=== PATIENT | male | born 1980 | race Caucasian/White ===

== ENCOUNTER 2023-05-18 04:50 | Emergency (ER) | payer MEDICAID, OTHER ==
[~2023-05-18] VITALS: Ht 185.4 cm; Wt 113.4 kg
--- NOTE | 2023-05-18 04:59 | NUR ---
PT PUT IN BED 9
[2023-05-18 05:01] VITALS: BP 139/86; PULSE 108; RESP 12; TEMP 97.8; O2SAT 97
[2023-05-18 05:05] VITALS: BP 139/86; PULSE 108; RESP 12; TEMP 97.8
--- NOTE | 2023-05-18 05:05 | NUR ---
Pt BIB himself with c/o penile pain. Pain scale of 3/10. Claims to have cut by scissor on his penis. No cut and blood upon assessment by ERMD. Claims to have burning pain in urination.
--- NOTE | 2023-05-18 05:09 | NUR ---
Patient being evaluated by physician at bedside.
[2023-05-18 05:15] VITALS: O2SAT 97
[2023-05-18] MEDS ORDERED: BACTO TP (05:20)
[2023-05-18] MEDS ORDERED: ACET-10509 PO (05:20)
--- NOTE | 2023-05-18 05:26 | NUR ---
Patient discharged with v/s stable. Written and verbal after care instructions given and explained. Patient alert, oriented and verbalized understanding of instructions. Ambulatory with steady gait. All questions addressed prior to discharge. ID band removed. Patient advised to follow up with PMD. Rx of Tylenol and Bactroban given. Patient educated on indication of medication including possible reaction and side effects. Opportunity to ask questions provided and answered.
== END 2023-05-18 05:26 | disposition home or self-care (01) ==
LOC: MED 04:50
DX: N34.2 Other urethritis (principal); N48.5 Ulcer of penis; Z20.2 Contact with and (suspected) exposure to infections with a predominantly sexual mode of transmission; Z79.899 Other long term (current) drug therapy
CPT/HCPCS: 99283

== ENCOUNTER 2023-07-23 06:00 | Emergency (ER) | payer OTHER ==
[~2023-07-23] VITALS: Ht 185.4 cm; Wt 102.1 kg
[~2023-07-23 06:00] MED LIST: ACET-10509 PO; BACTO TP
[2023-07-23 06:13] VITALS: BP 123/76; PULSE 97; RESP 17; TEMP 98.1; O2SAT 99
[2023-07-23] MEDS ORDERED: IBUPROFEN 400 MG TAB PO ONE (06:45)
[2023-07-23] MEDS ORDERED: DEXAMETHASONE 10 MG/ML VIAL PO ONE (06:45)
[2023-07-23] MEDS ORDERED: BENZ-300 PO (06:56)
[2023-07-23] MEDS ORDERED: IBUP-1842 PO (06:56)
[2023-07-23 07:21] LABS: FLU A ANTIGEN negative (NEGATIVE); FLU B ANTIGEN negative (NEGATIVE)
== END 2023-07-23 07:40 | disposition home or self-care (01) ==
LOC: MED 06:00
DX: J02.9 Acute pharyngitis, unspecified (principal); Z20.822 Contact with and (suspected) exposure to COVID-19; Z79.899 Other long term (current) drug therapy; Z79.1 Long term (current) use of non-steroidal anti-inflammatories (NSAID); Z79.2 Long term (current) use of antibiotics
CPT/HCPCS: 87081; 87426; 87804; 99283; J1100